=== PATIENT | female | born 1975 | race African-American/Black ===

== ENCOUNTER 2019-02-12 15:08 | Emergency (ER) | payer OTHER ==
[~2019-02-12] VITALS: Ht 167.6 cm; Wt 72.6 kg
[2019-02-12 17:35] VITALS: BP 130/72
== END 2019-02-12 17:35 | disposition home or self-care (01) ==
LOC: ER 15:08
DX: S00.83XA Contusion of other part of head, initial encounter (principal); F17.210 Nicotine dependence, cigarettes, uncomplicated; Z86.2 Personal history of diseases of the blood and blood-forming organs and certain disorders involving the immune mechanism; Z88.0 Allergy status to penicillin; V89.2XXA Person injured in unspecified motor-vehicle accident, traffic, initial encounter; Y93.89 Activity, other specified; Y92.89 Other specified places as the place of occurrence of the external cause; Y99.8 Other external cause status